=== PATIENT | female | born 2000 | race Caucasian/White ===

== ENCOUNTER 2021-10-05 05:24 | Inpatient (IN) | payer OTHER ==
[2021-10-05] MEDS ORDERED: Bupivacaine/Epinephrine 0.25% 30 ML VIAL ONE (07:00)
[2021-10-05] MEDS ORDERED: hydrALAZINE 20 MG/ML VIAL SLOW IVP PRN (07:41)
[2021-10-05] MEDS ORDERED: Butorphanol Tartrate 1 MG/ML VIAL SLOW IVP SCH (07:45)
[2021-10-05] MEDS: Lactated Ringer's 1,000 ML IV SCH ×3 (08:10→22:29)
[2021-10-05] MEDS ORDERED: Acetaminophen 500 MG TAB PO PRN (08:20)
[2021-10-05] MEDS ORDERED: Promethazine HCl 25 MG/ML VIAL IM PRN ×2 (08:20→11:23)
[2021-10-05] MEDS ORDERED: Misoprostol 200 MCG TAB PR PRN (08:20)
[2021-10-05] MEDS ORDERED: Ibuprofen 800 MG TAB PO PRN (08:20)
[2021-10-05] MEDS ORDERED: Ondansetron PF 4 MG/2 ML Vial IVP PRN ×2 (08:20→11:23)
[2021-10-05] MEDS ORDERED: Lidocaine 1% (PF) 30 ML VIAL SC PRN (08:20)
[2021-10-05] MEDS ORDERED: NS w/ Oxytocin 30 units 500 ML IV SCH (08:30)
[2021-10-05] MEDS ORDERED: Penicillin G Potassium 5 MILL.UNITS in Sodium Chloride 0.9% 100 ML IVPB SCH (08:30)
[2021-10-05 08:35] LABS: Hemoglobin 11.1 g/dL (12.0-15.5); Mean Corpuscular HGB CONC 32.7 g/dL (32.0-36.0); Mean Corpuscular Volume 88.5 fl (81.6-98.3); Mean Platelet Volume 11.7 fl (7.4-10.4); Platelet Count 225 10x3/uL (150-450); RBC Distribution Width 14.7 % (11.5-14.5); Red Blood Cell (RBC) Count 3.83 10x6/uL (3.90-5.03); White Blood Cell (WBC) Count 14.2 10x3/uL (3.5-10.5)
[2021-10-05 09:16] LABS: Syphilis Antibody Nonreactive (Nonreactive); Syphilis Antibody Index 0.03 S/CO (<1.00 Non-Reactive)
[2021-10-05 09:18] LABS: Hep B Surf Ag Non-Reactive S/CO (NonReactive)
[2021-10-05 09:35] LABS: HIV (1/2) Antibody/Antigen Non-Reactive (NonReactive); HIV 1/2 INDEX 0.12 S/CO (<1.00)
[2021-10-05 10:15] VITALS: BMI 28.8
[2021-10-05] MEDS ORDERED: Fentanyl 2 mcg/Bup 0.1% Cadd 100 ML ONE ×2 (10:35→18:37)
[2021-10-05 10:37] LABS: HBSAg Index 0.21 S/CO (0-0.99)
[2021-10-05] MEDS ORDERED: ePHEDrine Sulfate 50 MG/10 ML VIAL SLOW IVP PRN (11:23)
[2021-10-05] MEDS ORDERED: Naloxone HCl 0.4 mg/ml Vial IVP PRN ×2 (11:23)
[2021-10-05] MEDS ORDERED: Hydrocerin (Eucerin) Cream 120 gm Jar TOP PRN (11:23)
[2021-10-05] MEDS ORDERED: diphenhydrAMINE 50 MG/ML VIAL IVP PRN (11:23)
[2021-10-05] MEDS ORDERED: Acetaminophen 325 MG TAB PO PRN (11:23)
[2021-10-05] MEDS ORDERED: Lactated Ringer's 500 ML IV PRN (11:23)
[2021-10-05] MEDS ORDERED: Fentanyl 2 mcg/Bupivacaine 0.1% Cassette 100 ML EPIDURAL SCH (11:30)
[2021-10-05] MEDS ORDERED: Communication Order-Pharmacy FS SCH (11:30)
[2021-10-05] MEDS: Penicillin G 2.5 MILL.units 2.5 MILL.UNITS in Premix Bag 1 BAG IVPB SCH ×3 (15:32→23:30)
[2021-10-05] MEDS: NS w/ Oxytocin 30 units 500 ML IV SCH (20:58)
[2021-10-06] MEDS: Penicillin G 2.5 MILL.units 2.5 MILL.UNITS in Premix Bag 1 BAG IVPB SCH ×2 (03:32→09:23)
[2021-10-06] MEDS: NS w/ Oxytocin 30 units 500 ML IV SCH (06:47)
[2021-10-06] MEDS ORDERED: hydrALAZINE 20 MG/ML VIAL SLOW IVP PRN (09:20)
[2021-10-06] MEDS ORDERED: Ferrous Sulfate 325 MG TAB PO SCH (09:20)
[2021-10-06] MEDS ORDERED: Ondansetron PF 4 MG/2 ML Vial IVP PRN (09:20)
[2021-10-06] MEDS ORDERED: Boostrix 0.5 ML (Tdap) VIAL IM ONE (09:20)
[2021-10-06] MEDS ORDERED: Benzocaine-Menthol 82.5 ML CAN TOP PRN (09:20)
[2021-10-06] MEDS ORDERED: Bisacodyl 10 MG SUPP PR PRN (09:20)
[2021-10-06] MEDS ORDERED: Lanolin Ointment 7 GM TUBE TOP PRN (09:20)
[2021-10-06] MEDS ORDERED: HYDROcodone/Acetaminophen 5/325 mg Tablet PO PRN ×2 (09:20)
[2021-10-06] MEDS ORDERED: NS w/ Oxytocin 30 units 500 ML IV SCH (09:20)
[2021-10-06] MEDS ORDERED: Methylergonovine 0.2 MG/ML VIAL IM PRN (09:20)
[2021-10-06] MEDS ORDERED: Milk Of Magnesia 30 ML UDCUP PO PRN (09:20)
[2021-10-06] MEDS ORDERED: Misoprostol 200 MCG TAB VAG PRN (09:20)
[2021-10-06] MEDS: Lactated Ringer's 1,000 ML IV SCH (09:23)
[2021-10-06] MEDS: Ferrous Sulfate 325 MG TAB PO SCH (10:13)
[2021-10-06] MEDS: Prenatal Vitamin 1 TAB PO SCH (10:13)
[2021-10-06] MEDS: Docusate 100 MG CAP PO SCH ×2 (10:13→21:11)
[2021-10-06] MEDS: Ibuprofen 800 MG TAB PO SCH ×2 (12:53→21:12)
[2021-10-06 19:49] LABS: SARS-CoV-2 PCR by NAA Not Detected (NotDetected)
[2021-10-06] MEDS ORDERED: Zolpidem Tartrate 5 MG TAB PO PRN (21:00)
[2021-10-07] MEDS: Ibuprofen 800 MG TAB PO SCH ×2 (05:06→15:23)
[2021-10-07] MEDS: Prenatal Vitamin 1 TAB PO SCH (10:16)
[2021-10-07] MEDS: Docusate 100 MG CAP PO SCH (10:16)
[2021-10-07] MEDS: Ferrous Sulfate 325 MG TAB PO SCH (10:16)
[2021-10-07 17:05] VITALS: BP 101/60; TEMP 98
== END 2021-10-07 17:35 | disposition home or self-care (01) | DRG 807 ==
LOC: CSHLD/OP 05:24 → CSHLD 08:26 → CSHPP 10-06 09:19
PROVIDERS: ADMIT Obstetrics & Gynecology; ATTEND Obstetrics & Gynecology
PROC: 10E0XZZ Delivery of Products of Conception, External Approach (ICD-10-PCS; principal; 2021-10-06)
DX: O80 Encounter for full-term uncomplicated delivery (principal); Z37.0 Single live birth; Z3A.40 40 weeks gestation of pregnancy; Z20.822 Contact with and (suspected) exposure to COVID-19
CPT/HCPCS: 36415; 85027; 86780; 86850; 86900; 86901; 87340; 87389; J0595; J2405; J2540; J2590; J3490; J7120; U0003; U0005